=== PATIENT | male | born 1995 | race African-American/Black ===

== ENCOUNTER 2017-07-14 12:27 | Emergency (ER) | payer OTHER ==
[~2017-07-14] VITALS: Ht 195.6 cm; Wt 385.0 kg
[2017-07-14 12:28] VITALS: BP 155/77
[2017-07-14] MEDS ORDERED: MONT10TA2 (12:39)
[2017-07-14] MEDS ORDERED: LEVO330T (12:39)
[2017-07-14] MEDS ORDERED: DIVA500T9 (12:39)
[2017-07-14] MEDS ORDERED: LORA5TAB2 (12:39)
[2017-07-14] MEDS ORDERED: LIDOCAINE 2% MDV 20 ML VIAL As Ordered ONE (12:49)
[2017-07-14] MEDS ORDERED: LIDOCAINE 2% MDV 20 ML VIAL SC ONE (13:00)
--- NOTE | 2017-07-14 13:31 | REP ---
Right fifth finger series: Four views. History: Status post reduction. Comparison study at 10:49 this date showed a dorsal dislocation at the PIP joint. Findings: Four views of the right small finger demonstrate normal alignment of the PIP joint. No fracture is visible. Impression: No fracture noted. Normal alignment. Signed by Trent Khan MD 07/14/2017 03:51 P
== END 2017-07-14 13:55 | disposition home or self-care (01) ==
LOC: M ED 12:27
DX: S63.276A Dislocation of unspecified interphalangeal joint of right little finger, initial encounter (principal); W23.0XXA Caught, crushed, jammed, or pinched between moving objects, initial encounter; Y92.89 Other specified places as the place of occurrence of the external cause; Y93.89 Activity, other specified; Y99.9 Unspecified external cause status; R56.9 Unspecified convulsions; Z79.899 Other long term (current) drug therapy

== ENCOUNTER → 2017-07-14 | Outpatient (CLI) | payer OTHER ==
[~2017-07-14] MED LIST: DIVA500T9; LEVO330T; LORA5TAB2; MONT10TA2
--- NOTE | 2017-07-14 11:06 | REP ---
Clinical: Trauma. Technique: AP, lateral, bilateral oblique views of the right fifth digit. Findings: Lateral view best demonstrates posterior dislocation at the proximal interphalangeal joint. No obvious acute fracture. Impression: Posterior dislocation at the PIP joint. Signed by Tyree Mendes MD 07/14/2017 10:56 A
== END ==
LOC: M LRY 10:18
PROVIDERS: ATTEND Nurse Practitioner Family
DX: S63.289A Dislocation of proximal interphalangeal joint of unspecified finger, initial encounter (principal); X58.XXXA Exposure to other specified factors, initial encounter; Y92.89 Other specified places as the place of occurrence of the external cause; Y93.89 Activity, other specified; Y99.8 Other external cause status